=== PATIENT | male | born 1930 | race African-American/Black ===

== ENCOUNTER 2019-08-22 23:25 | Emergency (ER) | payer MEDICARE ==
[~2019-08-22] VITALS: Ht 175.3 cm; Wt 70.0 kg
[2019-08-23] MEDS ORDERED: SODIUM CHLORIDE 0.9% 500 ML IV ONE (01:45)
[2019-08-23 03:01] LABS: BASOPHILS % 0.6 % (0.0-2.0); EOSINOPHILS % 0.3 % (0.0-5.0); HEMOGLOBIN. 13.2 g/dL (14.0-18.0); MEAN CORPUSCULAR VOLUME 90.7 fL (80.0-94.0); MEAN PLATELET VOLUME 8.9 fl (7.4-10.4); NEUTROPHILS % 73.1 % (40.0-76.0); PLATELET 224 x1000/uL (130-400); RED BLOOD CELL COUNT 4.41 mill/uL (4.7-6.1); RED CELL DISTRIBUTION WIDTH 13.9 % (11.6-14.6)
[2019-08-23 03:06] LABS: CLARITY URINE CLEAR (CLEAR); COLOR URINE YELLOW (YELLOW); KETONES URINE NEGATIVE (NEGATIVE); LEUKOCYTE ESTERASE URINE NEGATIVE (NEGATIVE); NITRITE URINE NEGATIVE (NEGATIVE); OCCULT BLOOD URINE NEGATIVE (NEGATIVE); PROTEIN URINE 2+ (NEGATIVE); SPECIFIC GRAVITY URINE 1.028 (1.005-1.030)
[2019-08-23 03:09] LABS: CHLORIDE 112 mEq/L (98-107)
[2019-08-23 03:13] LABS: ETHANOL BLOOD < 10 mg/dL
[2019-08-23 03:16] LABS: *AMPHETAMINES SCREEN URINE NEGATIVE (NEGATIVE); *BARBITURATES SCREEN URINE NEGATIVE (NEGATIVE); *BENZODIAZEPINES SCREEN URINE NEGATIVE (NEGATIVE); *COCAINE SCREEN URINE NEGATIVE (NEGATIVE)
[2019-08-23 03:17] LABS: CANNABINOID URINE SCREEN NEGATIVE (NEGATIVE); METHADONE URINE SCREEN NEGATIVE (NEGATIVE); OPIATES URINE SCREEN NEGATIVE (NEGATIVE); PHENCYCLIDINE URINE SCREEN NEGATIVE (NEGATIVE)
[2019-08-23] MEDS ORDERED: ASPIRIN 325MG TABLET PO ONE (06:15)
[2019-08-23 09:45] VITALS: BP 148/96
== END 2019-08-23 10:55 | disposition short-term general hospital (02) ==
LOC: ER 23:25 → EDSEX 23:25 → EDBEDREQ 08-23 06:47 → EDBEDREQTM 08-23 06:47 → ER 08-23 10:55 → CANBEDREQ 08-23 11:40
DX: R53.1 Weakness (principal); I50.9 Heart failure, unspecified; R94.39 Abnormal result of other cardiovascular function study; F17.210 Nicotine dependence, cigarettes, uncomplicated; Z86.73 Personal history of transient ischemic attack (TIA), and cerebral infarction without residual deficits
CPT/HCPCS: 36415; 70450; 71045; 80053; 80305; 80320; 81003; 82140; 83690; 83880; 84484; 85025; 93005; 99285; J7040; G0480